=== PATIENT | female | born 1980 | race Caucasian/White ===

== ENCOUNTER → 2016-06-07 | Outpatient (CLI) | payer OTHER | LOC: FIMAGING 13:20 | PROVIDERS: ATTEND Obstetrics & Gynecology | DX: O36.63X0 Maternal care for excessive fetal growth, third trimester, not applicable or unspecified (principal); O09.523 Supervision of elderly multigravida, third trimester; Z3A.30 30 weeks gestation of pregnancy ==

== ENCOUNTER → 2016-07-05 | Outpatient (CLI) | payer OTHER | LOC: FIMAGING 12:28 | PROVIDERS: ATTEND Obstetrics & Gynecology | DX: O09.523 Supervision of elderly multigravida, third trimester (principal); Z3A.34 34 weeks gestation of pregnancy; Z98.891 History of uterine scar from previous surgery ==

== ENCOUNTER 2016-08-08 05:35 | Inpatient (IN) | payer OTHER ==
[2016-08-08] MEDS ORDERED: CITRIC ACID/SODIUM CITRATE 30 ML UDCUP PO ONE ×2 (06:06→06:35)
[2016-08-08] MEDS ORDERED: LR 500 ML IV ONE (06:06)
[2016-08-08] MEDS ORDERED: ceFAZolin 2 GM/DEXTROSE 100 ML IV ONE (06:06)
[2016-08-08 06:15] LABS: % IMMATURE GRANULYOCYTES 0.6 % (0.0-1.1); ABSOLUTE IMMATURE GRANULOCYTES 0.06 10^3/uL (0.00-0.10); ADD DIFF? NO; ADD MORPH? NO; ADD SCAN? NO; ATYPICAL LYMPHOCYTE FLAG 10 (0-99); FRAGMENT RBC FLAG 0 (0-99); HEMATOCRIT 38.5 % (38.0-47.0); HEMOGLOBIN 14.1 g/dL (12.6-16.3); LEFT SHIFT FLG 0 (0-99); LIPEMIA HEMOLYSIS FLAG 90 (0-99); MEAN CELL HEMOGLOBIN 32.3 pg (27.9-34.1); MEAN CELL HEMOGLOBIN CONCENTR. 36.6 g/dL (32.4-36.7); MEAN CELL VOLUME 88.1 fL (81.5-99.8); MEAN PLATELET VOLUME 10.5 fL (8.7-11.7); PLATELET CLUMPS FLAG 10 (0-99); PLATELET COUNT 211 10^3/uL (150-400); RED BLOOD CELL COUNT 4.37 10^6/uL (4.18-5.33)
[2016-08-08] MEDS ORDERED: LR 1,000 ML IV SCH (06:30)
[2016-08-08] MEDS ORDERED: FAMOTIDINE 20 MG/NACL 50 ML IV ONE (06:35)
[2016-08-08] MEDS ORDERED: METOCLOPRAMIDE 10 MG/2 ML VIAL IVP ONE (06:35)
[2016-08-08] MEDS ORDERED: AMMONIA AROMATIC 1 EACH AMP IH ONE (06:46)
[2016-08-08] MEDS ORDERED: MISOPROSTOL 200 MCG TAB ONE (06:47)
[2016-08-08] MEDS ORDERED: OXYTOCIN 10 UNIT/ML VIAL ONE (06:47)
[2016-08-08] MEDS ORDERED: TERBUTALINE SULFATE 1 MG/ML VIAL ONE (06:47)
[2016-08-08] MEDS ORDERED: OXYTOCIN 100 UNITS/10 ML VIAL ONE (07:15)
[2016-08-08] MEDS ORDERED: DEXAMETHASONE 4 MG/ML VIAL ONE (07:15)
[2016-08-08] MEDS ORDERED: KETOROLAC 30 MG/1 ML SDV ONE (07:15)
[2016-08-08] MEDS ORDERED: morphINE PF 5 MG/10 ML INJ ONE (07:17)
[2016-08-08] MEDS ORDERED: PHENYLEPHRINE HCL 100 MCG/ML SYR ONE (07:27)
[2016-08-08] MEDS ORDERED: SIMETHICONE 80 MG TAB CHEW PO PRN (07:32)
--- NOTE | 2016-08-08 08:40 | OBPROC ---
- Delivery Pre-op Diagnoses: repeat C/S Post-op Diagnoses: repeat c/s Procedure: Repeat Surgeon: Tiffanie Salguero Potato Spotter: Lanie Kathleen Anesthesiologist: LESLIE WILLIS [employer] Equipment Operator/PRESSER ALL AROUND: María Fu Anesthesia: Spinal Complications: None IV Fluid (ml): 2,000 EBL: 800 - [place] Info Infant A Delivery Date: 08/08/16 Delivery Time: 08:18 Sex of : Male Score (1 Min): 8 Score (5 Min): 9
[2016-08-08] MEDS ORDERED: NALOXONE HCL 0.4 MG/ML INJ IVP PRN (08:49)
[2016-08-08] MEDS ORDERED: MEPERIDINE 25 MG/ML SYR IVP PRN (08:49)
[2016-08-08] MEDS ORDERED: PHENYLEPHRINE HCL 100 MCG/ML SYR IVP PRN (08:49)
[2016-08-08] MEDS ORDERED: ONDANSETRON 4 MG/2 ML VIAL IVP PRN ×2 (08:49→12:36)
[2016-08-08] MEDS ORDERED: fentaNYL 100 MCG/2 ML INJ IVP PRN (08:49)
[2016-08-08 10:01] LABS: ALANINE AMINOTRANSFERASE 30 IU/L (9-52); ASPARTATE AMINOTRANSFERASE 34 IU/L (14-46); BILIRUBIN,TOTAL 0.5 mg/dL (0.1-1.4); BILIRUBIN-CONJUGATED 0.3 mg/dL (0.0-0.5); BILIRUBIN-UNCONJUGATED 0.2 mg/dL (0.0-1.1); CREATININE 0.7 mg/dL (0.6-1.0); GLOMERULAR FILTRATION RATE > 60; LACTATE DEHYDROGENASE 589 IU/L (313-618); URIC ACID 7.5 mg/dL (2.5-6.8)
--- NOTE | 2016-08-08 10:02 | GOP ---
[f rep st] OPERATIVE REPORT DATE OF OPERATION: 08/08/2016 SURGEON: Tiffanie Layton MD JACQUARD CARD CUTTER: Lanie Kathleen CNM. ANESTHESIA: Spinal. PREOPERATIVE DIAGNOSIS: Intrauterine at 39-1/7 weeks' gestation with previous section, desires repeat. POSTOPERATIVE DIAGNOSIS: Intrauterine at 39-1/7 weeks' gestation with previous section, desires repeat. PROCEDURE PERFORMED: Repeat low transverse section. FINDINGS: Viable male infant, with Apgars of 8 and 9, in vertex presentation. Clear amniotic fluid. SPECIMENS: None. ESTIMATED BLOOD LOSS: 800 mL. INDICATIONS: The patient is a 36-year-old, G3, P1, female who is at 39-1/7 weeks' gestation, who had a previous section and desired a repeat section. DESCRIPTION OF PROCEDURE: The patient was taken to the operating room, where she was prepped and draped in a normal sterile fashion in the dorsal supine position with a leftward tilt. A surgical time-out was performed, verifying the patient's name, date of , planned procedure, and site. The patient received 2 g of Ancef preoperatively. A Pfannenstiel skin incision was made with a scalpel and carried through to the underlying fascia. The fascia was incised in the midline and extended laterally. The superior aspect of the fascia was grasped with the Marino clamps, the rectus muscle was dissected off bluntly and with the Bovie cautery. The inferior aspect of the fascia was grasped with the Marino clamps, the rectus muscle was dissected off bluntly and with the Bovie cautery. The peritoneum was identified and entered in sharply. The peritoneum was divided, the bladder blade was placed, the vesicouterine peritoneum was incised with the Metzenbaum scissors, and the bladder flap was created digitally. The bladder blade was replaced. The uterus was incised. The uterine incision was extended laterally. The infant was delivered. The cord was clamped and cut. Cord blood was obtained. The was handed to the nurse practitioner. The placenta was delivered spontaneously. The uterus was exteriorized and cleared of all clots and debris. The uterine incision was reapproximated with 0 Monocryl in a running, locked fashion in 2 layers. The uterus was returned to the abdomen. The gutters were cleared of all clots and debris. The uterine incision was reinspected and noted to be hemostatic. The subfascial spaces were inspected and noted to be hemostatic. The fascia was reapproximated with 0 Vicryl in a running fashion. The subcutaneous tissue was irrigated and closed with 3-0 Vicryl, and the skin was closed with 4-0 Monocryl. All counts were correct x2. COMPLICATIONS: None. OUTCOME: Stable to recovery room. /[id number]/MODL MTDD
--- NOTE | 2016-08-08 10:11 | POSTANESTH ---
Post Anesthetic Evaluation Cardiovascular Status: Normal, Stable Respiratory Status: Normal, Stable Level of Consciousness/Mental Status: Can Participate in Eval Pain Control: Adequate, Prn Tx Ordered Nausea/Vomiting Control: Adequate, Prn Tx Ordered Complications Possibly Related to Anesthesia: None Noted
[2016-08-08] MEDS: OXYCODONE/APAP 5/325 TAB PO PRN ×4 (11:58→23:58)
[2016-08-08] MEDS: KETOROLAC 30 MG/1 ML SDV IVP SCH ×2 (14:31→20:21)
--- NOTE | 2016-08-08 19:18 | SOAPPROG ---
SOAP Progress Note Assessment/Plan: Assessment: Acupuncture requested post-surgically to manage pain, reduce nausea post- anesthesia, reduce symptom withdrawal from pain medication such as itching and constipation. Patient has pain at the site to her incision and feels tired post-surgically. She currently has a catheter. Patient has some facial edema. Treatment: Bilateral auricular [place]/Rapid Acupuncture (BFA) protocol: affects RUBBLE PLACER to reduce pain Cingular gyrus Thalamus [place] 2 Point Zero [place] Men Right Side: SP 3 Tonify the Spleen, improve digestion, decrease dampness. Balance the ST. SP 4 Support the uterus. Encourage blood flow and circulation. SP 6 Meeting of LR, KI, SP. Support the uterus. Decrease abdominal and pelvic pain. SP 9 x 2 Reduce pain and swelling in low back (epidural). Balance the ST meridian. SP 10 Break blood stagnation. Move the blood. Balance the ST. Support hormone regulation. KI 3 Tonify the aron. Balance the BL meridian. Support the low back and genitals. KI 4 Reduce swelling and pain in lower griselda and genitals. LR 3 Move the blood. Reduce inflammation and pain in pelvic region. LR 8 Tonify the blood. Support the uterus. Left Side: ST 36 Tonify the qi. Improve energy. Decrease swelling and inflammation. Increase milk flow. ST 41 Relax the waist, decrease inflammation in abdominal muscles. GB 34 Relax the tendons. Decrease muscle tension. GB 40 Relax the hips, shoulders, and occiput. GB 41 Open the Neida Bisi, Belt meridian. BL 65 Niru point. Decrease pain in the low back and paraspinals. Ling Gu Decrease low back pain. Da Rizwana Decrease low back pain. LI 4 Circulate the qi, increase energy. Balance the ST meridian. Move the intestines. SI 3 Relax the low back. Decrease spinal pain. Balance the BL meridian. LI 11 Move the intestines. Balance the ST and LI. SJ 5 Relax the belt meridian. GB 20 bilateral: relax the neck. Treatment administered using the principles of Dr. Paniagua's Balance Method. Plan: 08/08/16 18:52 Objective: Vital Signs Temp Pulse Resp BP Pulse Ox 36.6 C 94 18 110/74 93 08/08/16 18:06 08/08/16 18:06 08/08/16 18:06 08/08/16 18:06 08/08/16 18:06 Laboratory Results 08/08/16 06:07 08/08/16 06:05 08/07/16 08/08/16 08/09/16 05:59 05:59 05:59 Intake Total 4800 Output Total 1350 Balance 3450 ICD10 Worksheet Patient Problems: Problems Problem Status Onset C. difficile diarrhea Acute 11/21/15 Mild pre-eclampsia in third trimester Acute
[2016-08-08] MEDS: DOCUSATE SODIUM 100 MG CAP PO PRN (20:00)
[2016-08-09] MEDS: KETOROLAC 30 MG/1 ML SDV IVP SCH ×2 (02:29→17:12)
[2016-08-09] MEDS: OXYCODONE/APAP 5/325 TAB PO PRN ×7 (04:10→23:05)
[2016-08-09] MEDS: DOCUSATE SODIUM 100 MG CAP PO PRN ×2 (07:59→20:45)
[2016-08-09] MEDS: IBUPROFEN 600 MG TAB PO PRN ×3 (08:41→20:45)
[2016-08-09 09:54] VITALS: RESP 18
--- NOTE | 2016-08-09 10:03 | SOAPPROG ---
SOAP Progress Note Assessment/Plan: Assessment: Acupuncture requested post-surgically to manage pain, reduce nausea post- anesthesia, reduce symptom withdrawal from pain medication such as itching and constipation. Patient has pain at the site to her incision and feels tired post-surgically. She currently has a catheter. Patient has some facial edema. Treatment: Bilateral auricular [place]/Rapid Acupuncture (BFA) protocol: affects COLLEGE SPECIALIST to reduce pain Cingular gyrus Thalamus [place] 2 Point Zero [place] Men Right Side: SP 3 Tonify the Spleen, improve digestion, decrease dampness. Balance the ST. SP 4 Support the uterus. Encourage blood flow and circulation. SP 6 Meeting of LR, KI, SP. Support the uterus. Decrease abdominal and pelvic pain. SP 9 x 2 Reduce pain and swelling in low back (epidural). Balance the ST meridian. SP 10 Break blood stagnation. Move the blood. Balance the ST. Support hormone regulation. KI 3 Tonify the aron. Balance the BL meridian. Support the low back and genitals. KI 4 Reduce swelling and pain in lower griselda and genitals. LR 3 Move the blood. Reduce inflammation and pain in pelvic region. LR 8 Tonify the blood. Support the uterus. Left Side: ST 36 Tonify the qi. Improve energy. Decrease swelling and inflammation. Increase milk flow. ST 41 Relax the waist, decrease inflammation in abdominal muscles. GB 34 Relax the tendons. Decrease muscle tension. GB 40 Relax the hips, shoulders, and occiput. GB 41 Open the Neida Bisi, Belt meridian. BL 65 Niru point. Decrease pain in the low back and paraspinals. Ling Gu Decrease low back pain. Da Rizwana Decrease low back pain. LI 4 Circulate the qi, increase energy. Balance the ST meridian. Move the intestines. SI 3 Relax the low back. Decrease spinal pain. Balance the BL meridian. LI 11 Move the intestines. Balance the ST and LI. SJ 5 Relax the belt meridian. GB 20 bilateral: relax the neck. Treatment administered using the principles of Dr. Paniagua's Balance Method. Plan: Patient has another visit scheduled for tomorrow morning. 08/08/16 18:52 08/09/16 09:56 Acupuncture requested post-surgically to manage pain and decrease post-surgical swelling. Patient has pain at the site to her incision and feels tired post-surgically. Her catheter was removed this morning. She has not urinated or had a bowel movement yet, but does "feel gas moving in her abdomen" . Her milk has come in and the baby is cluster nursing. She is getting very little sleep due to nursing. In general her mood is pleasant and she feels positive. Treatment: Bilateral auricular [place]/Rapid Acupuncture (BFA) protocol: affects COLLEGE SPECIALIST to reduce pain Cingular gyrus Thalamus [place] 2 Point Zero [place] Men Left Side: SP 3 Tonify the Spleen, improve digestion, decrease dampness. Balance the ST. SP 4 Support the uterus. Encourage blood flow and circulation. SP 6 Meeting of LR, KI, SP. Support the uterus. Decrease abdominal and pelvic pain. SP 9 Xi Cleft point to reduce pain and drain damp (reduce edema). SP 9 x 2 Reduce pain and swelling in low back (epidural). Balance the ST meridian. LR 3 Move the blood. Reduce inflammation and pain in pelvic region. Ling Gu Decrease low back pain. Da Rizwana Decrease low back pain. LI 4 Circulate the qi, increase energy. Balance the ST meridian. Move the intestines. SI 3 Relax the low back. Decrease spinal pain. Balance the BL meridian. SI 1 Support milk flow. Right Side: ST 36 Tonify the qi. Improve energy. Decrease swelling and inflammation. Increase milk flow. GB 34 Relax the tendons. Decrease muscle tension. GB 40 Relax the hips, shoulders, and occiput. BL 65 Niru point. Decrease pain in the low back and paraspinals. BRII 1 Relax the back. HT 7 Calm the murcia, balance the GB meridian, relax the neck and shoulders, aid sleep. Patient will seek follow-up acupuncture treatments on an as needed basis both in the hospital and at her practitioner's private practice. Treatment administered using the principles of Dr. Paniagua's Balance Method. Objective: Vital Signs Temp Pulse Resp BP Pulse Ox 36.8 C 87 18 114/72 92 08/09/16 08:00 08/09/16 08:00 08/09/16 08:00 08/09/16 08:00 08/09/16 08:00 Laboratory Results 08/09/16 04:15 08/08/16 06:05 08/08/16 08/09/16 08/10/16 05:59 05:59 05:59 Intake Total 4800 Output Total 2550 Balance 2250 ICD10 Worksheet Patient Problems: Problems Problem Status Onset C. difficile diarrhea Acute 11/21/15 Mild pre-eclampsia in third trimester Acute
--- NOTE | 2016-08-09 12:24 | SOAPPROG ---
SOAP Progress Note Assessment/Plan: Assessment: POD#1 s/p rLTCS Recovering appropriately Rh pos Plan: Routine care Reviewed home POD#2 vs POD#3 08/09/16 12:24 Subjective: Feels great, much better than after last C/S. Percocet working well for pain. Minimal bleeding. Ambulating, voiding urine, tolerating regular diet. Objective: Vital Signs Temp Pulse Resp BP Pulse Ox 36.8 C 87 18 114/72 92 08/09/16 08:00 08/09/16 08:00 08/09/16 08:00 08/09/16 08:00 08/09/16 08:00 Laboratory Results 08/09/16 04:15 08/08/16 06:05 08/08/16 08/09/16 08/10/16 05:59 05:59 05:59 Intake Total 4800 Output Total 2550 Balance 2250 Gen: NAD, alert, awake Breasts: soft Resp: unlabored CV: RRR Abd: soft, appropriately tender, nondistended Bandage: clean/dry Ext: no edema ICD10 Worksheet Patient Problems: Problems Problem Status Onset C. difficile diarrhea Acute 11/21/15 Mild pre-eclampsia in third trimester Acute
[2016-08-10] MEDS: IBUPROFEN 600 MG TAB PO PRN ×3 (02:52→15:07)
[2016-08-10] MEDS: OXYCODONE/APAP 5/325 TAB PO PRN ×4 (02:53→15:07)
--- NOTE | 2016-08-10 08:31 | OBGCSDC ---
General Delivery Information - General Info : 2 Para: 2 Delivery Date: 08/08/16 Delivery Time: 08:18 Delivery Physician/CNM: Tiffanie Salguero Flexo Folder Gluer Operator: Lanie Kathleen Admission Date: 08/08/16 Labs: Patient ABO/Rh B POSITIVE 08/08/16 06:07 Hct 30.4 % (38.0-47.0) L 08/09/16 04:15 - Info A Sex of : Male Score (1 Min): 8 Score (5 Min): 9 - Delivery IUP (Weeks): 39 Number of Prior Sections: 1 Indications for Prior Section: Breech Indications for Current Section: Elective/Repeat Procedures: LTCS Intra-op Complications: None EBL: 800 Anesthesia: Spinal Discharge Information - Discharge Information Discharge Medications: Ibuprofen, Percocet, Vitamins Condition: Good Instruction/Follow Up: Two Weeks, Six Weeks Discharge Physician/CNM: Lanie Kathleen Discharge Date: 08/10/16 Dictated: No
[2016-08-10] MEDS: DOCUSATE SODIUM 100 MG CAP PO PRN (08:52)
[2016-08-10] MEDS ORDERED: IRON POLYSAC/IRON HEME 28 MG TAB PO SCH (09:00)
[2016-08-10 10:53] VITALS: BP 118/82; PULSE 82; TEMP 97.4; O2SAT 95
== END 2016-08-10 16:50 | disposition home or self-care (01) | DRG 766 ==
LOC: FLD 05:35 → FOB 11:58
PROVIDERS: ADMIT Midwife; ATTEND Obstetrics & Gynecology
PROC: 10D00Z1 Extraction of Products of Conception, Low, Open Approach (ICD-10-PCS; principal; 2016-08-08)
DX: O34.211 Maternal care for low transverse scar from previous cesarean delivery (principal); Z3A.39 39 weeks gestation of pregnancy; Z37.0 Single live birth; O09.523 Supervision of elderly multigravida, third trimester
CPT/HCPCS: J0690; J1100; J1885; J2274; J2370; J2405; J2590; J2765; J3105